=== PATIENT | male | born 1960 | race Caucasian/White ===

== ENCOUNTER 2018-07-23 11:54 | Day surgery (SDC) | payer OTHER ==
[2018-07-23] MEDS ORDERED: PROPOFOL 40 ML (15:38)
== END 2018-07-23 16:42 | disposition home or self-care (01) ==
LOC: GIL 11:54
DX: Z12.11 Encounter for screening for malignant neoplasm of colon (principal); D12.4 Benign neoplasm of descending colon; K64.8 Other hemorrhoids; K57.90 Diverticulosis of intestine, part unspecified, without perforation or abscess without bleeding
CPT/HCPCS: 45378; 88305